=== PATIENT | male | born 1985 | race Caucasian/White ===

== ENCOUNTER 2023-04-01 09:37 | Emergency (ER) | payer MEDICAID ==
[~2023-04-01] VITALS: Ht 170.2 cm; Wt 99.8 kg
[2023-04-01 10:05] VITALS: BP_SYST 115; PULSE 76; RESP 22; TEMP 98.3; O2SAT 97
[2023-04-01] MEDS ORDERED: IBUP-1969 PO (10:25)
[2023-04-01] MEDS ORDERED: SULF1TAB48 PO (10:25)
== END 2023-04-01 10:59 | disposition home or self-care (01) ==
LOC: SED 09:37
DX: L02.413 Cutaneous abscess of right upper limb (principal); R22.31 Localized swelling, mass and lump, right upper limb; Z79.899 Other long term (current) drug therapy
CPT/HCPCS: 99284

== ENCOUNTER 2023-04-03 14:14 | Emergency (ER) | payer MEDICAID ==
[~2023-04-03] VITALS: Ht 170.2 cm; Wt 99.8 kg
[~2023-04-03 14:14] MED LIST: IBUP-1969 PO; SULF1TAB48 PO
[2023-04-03 14:21] VITALS: BP_SYST 142; PULSE 94; RESP 20; TEMP 98.3; O2SAT 98
[2023-04-03 15:25] VITALS: BP_SYST 142; PULSE 94; RESP 20; TEMP 98.3; O2SAT 98
== END 2023-04-03 15:22 | disposition home or self-care (01) ==
LOC: SED 14:14
DX: L02.413 Cutaneous abscess of right upper limb (principal); Z79.899 Other long term (current) drug therapy
CPT/HCPCS: 99281